=== PATIENT | female | born 1965 | race Two or more races ===

== ENCOUNTER → 2017-10-08 | Outpatient (CLI) | payer MEDICAID | END | disposition home or self-care (01) | LOC: LABPV 11:23 | PROVIDERS: ATTEND Internal Medicine Cardiovascular Disease | DX: I11.0 Hypertensive heart disease with heart failure (principal); I50.9 Heart failure, unspecified; E11.8 Type 2 diabetes mellitus with unspecified complications; E55.9 Vitamin D deficiency, unspecified | CPT/HCPCS: 84443 ==